=== PATIENT | male | born 1950 | race Caucasian/White ===

== ENCOUNTER 2016-08-26 10:00 | Inpatient (IN) | payer BC, MEDICARE ==
[~2016-08-26] VITALS: Ht 180.3 cm; Wt 229.8 kg
--- NOTE | ~2016-08-26 | ECHO ---
Transthoracic Echocardiography Report (TTE) Demographics Patient Name NAS VELASQUEZ Date of Study 08/28/2016 Patient Number [id number] Visit Number [id number] Date of 1950 Room Number [id number] Gender Male Number Age 65 year(s) Referring Principal Statistical Programmer Hay DOZIER, [facility] Physician Nandini Physician Interpreting Brennon Silveira Garment Cutter Physician MD Supervising Ordering Ayush Silveira MD, MD/MLP Physician Nurse Stress Weigher Operator Conclusions Summary Technically difficult exam due to patients body habitus. 3 ml of Definity administered. The estimated left ventricular ejection fraction is 50%. Diastolic function indeterminate due to patient's arrhythmia. Mild to moderately dilated right ventricle. Mildly reduced right ventricular function. Procedure Type of Study TTE procedure:M-Mode, Doppler , Color Doppler, Echo Limited w/ Contrast. Procedure Date Date: 08/28/2016 Start: 10:51 AM Study Location: Inpatient Portable Technical Quality: Poor visualization Additional Indications:elevated enzymes Appropriate Use Criteria: 9 Patient Status: Routine HR: 90 bpm BP: 122/78 mmHg M-Mode/2D Measurements Cardiac Output: 2.16 l/min AO Root Dimension: 3.3 cm LA Dimension: 3.8 cm LVOT: 2.4 cm LVOT VTI: 5.31 cm LV Stroke volume: 24.01 ml Doppler Measurements AV Peak Velocity: 0.31 m/s MV Peak E-Wave: 0.55 m/s AV Peak Gradient: 0.39 mmHg MV Peak A-Wave: 0.48 m/s AV Mean Gradient: 0 mmHg MV E/A Ratio: 1.16 LVOT Peak Velocity: 0.38 m/s PV Peak Velocity: 0.72 m/s PV Peak Gradient: 2.09 mmHg E' Lateral Velocity: 0.19 m/s A' Lateral Velocity: 0.06 m/s Findings Left Ventricle Diastolic function indeterminate due to patient's arrhythmia. Right Ventricle Mild to moderately dilated right ventricle. Mildly reduced right ventricular function. Left Atrium Left atrium not well visualized. Right Atrium Right atrium not well visualized. Mitral Valve Mitral valve not well visualized. Aortic Valve Aortic valve not well visualized. Tricuspid Valve Trivial tricuspid regurgitation by color Doppler. Pulmonic Valve The pulmonic valve is not well visualized. Pericardial Effusion Epicardial fat pad noted in subcostal view. Pleural Effusion No evidence of pleural effusion. Signature dtt: Serene Willett dtd: 08/28/16 1051 Physician Self Edit
--- NOTE | ~2016-08-26 | PUL ---
PATIENT'S NAME: NAS VELASQUEZ [facility] AGE: 65 Y [address] ROOM: [address] [address] LOCATION: GPCU ADMIT DATE: 08/26/2016 Pulmonary DISCHARGE DATE: 09/01/2016 FAMILY PHYSICIAN: Noa Fletcher PA-C ATTENDING PHYSICIAN: Sinan Munoz NAME OF PROCEDURE: Overnight Trend Oximetry DATE OF PROCEDURE: August 30 to August 31, 2016 REASON FOR EXAM: Nocturnal hypoxemia RESULTS: Patient overnight trend oximetry, saturations ranging from 70 to 98%. Saturations were below 88% greater than 5 minutes. Heart rate ranged from 61 to 121 beats per minute. MD YAJAIRA HAQ/ /[id number] dtt: 09/23/16 0827 , Ian Gonzalez dtd: 09/16/16 1318
--- NOTE | ~2016-08-26 | OR ---
PATIENT'S NAME: NAS VELASQUEZ [facility] AGE: 65 Y [address] ROOM: [address] [address] LOCATION: GICU ADMIT DATE: 08/26/2016 OR/Procedure Report DISCHARGE DATE: FAMILY PHYSICIAN: PHYSICIAN, UNKNOWN ATTENDING PHYSICIAN: SINAN MUNOZ SURGEON: Sinan Munoz MD SUPERVISOR AIRPLANE FLIGHT ATTENDANT: DATE OF PROCEDURE: 08/26/2016 PROCEDURE PERFORMED: Central venous catheterization. INDICATION FOR PROCEDURE: Lack of IV access and lack of ability to draw the labs. Informed consent from the patient and his was taken. Risks versus benefits, as well as risk of pneumothorax as well as bleeding and infection was explained in depth to the patient. The patient agreed to proceed. DESCRIPTION OF PROCEDURE: A time-out was taken. Both internal jugular veins were examined with ultrasonography, and no thrombus was observed in both of these. Lungs sliding bilaterally was noted. Right IJ was selected for the catheterization. Using sterile measures, the patient was prepped. Using lidocaine 1%, local anesthesia was achieved. Using Real-Time ultrasonography, a trocar needle was entered into the internal jugular with the aspiration of the dark oozing blood. A guidewire was advanced. Needle was removed. Presence of the guidewire was confirmed in the right internal jugular vein with the help of ultrasonography. Dilatation was achieved, and line was threaded over the guidewire, and guidewire was retrieved. Line was secured with sutures and dressed. No immediate complications were noted. Postprocedural chest x-ray have been ordered. MD REMA RICH/modl /[id number] d: 08/26/16 2254 t: 08/27/16 1234, OPERATIVE SUMMARY
--- NOTE | ~2016-08-26 | CON ---
PATIENT'S NAME: NAS VELASQUE[facility] AGE: 65 Y [address] ROOM: [id number] [place], [place] [address] LOCATION: GICU ADMIT DATE: 08/26/2016 Consultation DISCHARGE DATE: FAMILY PHYSICIAN: PHYSICIAN, UNKNOWN ATTENDING PHYSICIAN: CHINO BOUCHER HISTORY: This is a pleasant 65-year-old gentleman admitted to the ICU today with sepsis of uncertain origin. He tells me he had temps to 104 degrees at home. He was transferred here. He has multiple and severe comorbidities. He was morbidly obese at over 440 pounds. He has congestive failure, AFib, etc. He has a massive edema that involves his penis and scrotum as well as his pelvis and lower extremities. He has a huge scrotum and a urethral meatus that is buried at least 10 cm deep. This is not a situation where we can manipulate some of the edematous fluid out of the way and find the meatus. I can't reach the meatus with my finger. The nurses were obviously unable place a catheter. I was asked to see him. He is incontinent. He is dribbling. There was no way he could void. I dumped Betadine down his phimotic skin and towards the glans. That is all we can do for a prep. I then tried blindly with Coude tipped catheters and a stylet catheter. The patient tolerated it well, but there was no way that we are going to find his meatus. He had an ultrasound of his scrotum done. As anticipated, testicles appear normal. He just has tremendous edema in the scrotal wall. In order to help with fluid management and to get a urine for culture considering his possible urosepsis, I attempted cystoscopy. I can visualize the meatus at the extent of the rigid scope. I could pass catheter guides as well as a filiforms through. However, it is too deep. We cannot get any purchase on the penile shaft or glans. Everything balls-up in that deep pocket whenever we tried to slide anything over the catheter guide or the filiform with a screw tip catheter. With his residual only at 182 and with him doing better clinically, I am going to stop. If it becomes necessary, we will need to take him to surgery. He and his understand. IMPRESSION: 1. Urinary incontinence - multifactorial. 2. Urinary retention. 3. Unable place Slade catheter. 4. Sepsis. 5. Morbid obesity with severe penoscrotal and pelvic edema. PATIENT'S NAME: [facility]EL[facility] AGE: 65 Y [address] ROOM: [place] [address] LOCATION: GICU ADMIT DATE: 08/26/2016 Consultation DISCHARGE DATE: FAMILY PHYSICIAN: PHYSICIAN, UNKNOWN ATTENDING PHYSICIAN: CHINO BOUCHER PLAN: As above. MD KATE AUSTIN/domo /[id number] d: 08/26/16 2251 t: 09/02/16 1111, CONSULTATION REPORT
--- NOTE | ~2016-08-26 | DS ---
PATIENT'S NAME: [facility] AGE: 65 Y [address] ROOM: [place] [address] LOCATION: GPCU ADMIT DATE: 08/26/2016 Discharge Summary DISCHARGE DATE: 09/01/2016 FAMILY PHYSICIAN: Noa Fletcher PA-C ATTENDING PHYSICIAN: Sinan Munoz FINAL DIAGNOSES: 1. Septic shock. 2. Acute hypoxic hypercapnic respiratory failure and chronic hypercapnic respiratory failure. 3. Pyulo-vs-acntrbm diastolic congestive heart failure. 4. Paroxysmal atrial fibrillation. 5. Long-term anticoagulation with Eliquis. 6. Nocturnal hypoxia. 7. Thrombocytopenia. 8. Essential hypertension. In short, the patient was admitted with septic shock into the intensive care unit and found to be in acute respiratory failure. LABORATORY DATA: On admission, his initial ABG 7.32, pCO2 65, PO2 126, was on 15 L FiO2. Repeat gases shortly after admission were pH 7.31, pCO2 69, PO2 71, that was on 92% sat. Sodium on admission was 142, discharge 139. Potassium on admission 4.2, at discharge 4. BUN on admission was 19, discharge 16. Creatinine on admission was 1.3, discharge 1.2. His liver enzymes on admission were normal. His proBNP on admission was 1593, discharge 434. Digoxin level on admission was 0.65. Hemoglobin A1c 5.8. White blood cell count on admission was 9.6 with a left shift, at discharge 4.7. Hemoglobin on admission 11.8, discharge 11.6. Platelet count on admission was 110, at discharge 122. Procalcitonin on admission was 12.76, got as high as 23.32, at discharge 11.05. Microbiology: All cultures in the hospital were negative. Chest x-ray on admission showed cardiomegaly, but they did not see any acute process. Ultrasound of the testicles done for severe scrotal edema, did show normal testicles, marked scrotal wall edema. Echocardiogram done showed an ejection fraction was 50%. He had diastolic dysfunction, mild to moderately dilated right ventricle. HOSPITAL COURSE: The patient was admitted into the intensive care unit with a diagnosis of septic shock. He had been placed on a pressor in the PATIENT'S NAME: [facility] AGE: 65 Y [address] ROOM: [address] [place], [place] [address] LOCATION: GPCU ADMIT DATE: 08/26/2016 Discharge Summary DISCHARGE DATE: 09/01/2016 FAMILY PHYSICIAN: Noa Fletcher PA-C ATTENDING PHYSICIAN: Sinan Munoz transferring facility and given doses of IV fluid. He was admitted here, placed on the sepsis protocol and given IV Levaquin and vancomycin. He did receive 2 L here. We were able to wean the Levophed. An ultrasound of his scrotum was also ordered because it was quite enlarged. We continued to monitor him closely. We did find him to be in acute respiratory failure. We placed him on BiPAP. Did give him digoxin IV to help control his heart rate and continued the apixaban that he takes at home. He did require the BiPAP for a couple of days, we were able to get him off that. His heart rates were high and he was given IV digoxin to help control them. It was also felt that he had an acute component of CHF and so he was given Bumex. We were able to get him off the BiPAP and we did use it only at night for another night. Did start him on oral Cardizem to help control his heart rate. Did continue to diurese him. On the , we did diurese him with albumin and Bumex and we were quite successful. We were able to significantly reduce his oxygen requirements. He continued to receive diuresis over the weekend. He did have an overnight trend oximetry done that did show that he did have a significant percentage of the evening with his sats less than 90%, approximately 50% in the evening. During this time frame, we did work to wean his antibiotics; these were cut down to Levaquin and ceftriaxone initially. Blood cultures were obtained at the transferring facility and only 1/2 returned positive for Staph aureus. His antibiotics were not changed as his procalcitonin was trending downward and clinically he was markedly improved. It was felt that the source of his sepsis was from his lungs. It was felt that the patient was stable for discharge and he was discharged to home. DISCHARGE INSTRUCTIONS: Follow up with Noa Fletcher in 3-[address] Kebede, when he comes to [place]. His diet is low-sodium diet. Arrangements were made for him to receive oxygen at night. I did speak with Noa Fletcher regarding this discharge as well as the patient and we left the decision on sleep study to her. MEDICATIONS: 1. Eliquis 5 mg twice daily. 2. Ceftin 250 twice a day, which will stop on the . 3. Lanoxin 0.125 mg daily. 4. Cardizem CD 180 mg daily. 5. Flonase 1 spray each nostril daily. 6. Benadryl 25 mg every 12 hours as needed. 7. Percocet 5/325 one every 4 hours as needed. 8. Krill oil 1000 mg twice daily. PATIENT'S NAME: NAS VELASQUEZ [facility] AGE: 65 Y [address] ROOM: [address] [address] LOCATION: GPCU ADMIT DATE: 08/26/2016 Discharge Summary DISCHARGE DATE: 09/01/2016 FAMILY PHYSICIAN: Noa Fletcher PA-C ATTENDING PHYSICIAN: Sinan Munoz 9. Voltaren 75 mg twice daily. 10. Potassium 10 mEq every 48 hours. 11. Lasix 60 mg daily. 12. Albuterol inhaled 2 puffs 4 times daily. 13. Align or the generic equivalent, to take as directed from the box while on antibiotics. Also encouraged him to eat Activia yogurt daily. I did speak with Noa Fletcher. The patient is discharged to home. OVERALL PROGNOSIS: Good. AZUL BAILEY MD LAW/modl /[id number] d: 09/02/16 0159 t: 09/19/161831, DISCHARGE SUMMARY
--- NOTE | ~2016-08-26 | HP ---
PATIENT'S NAME: [facility] AGE: 65 Y [address] ROOM: [place] [address] LOCATION: GICU ADMIT DATE: 08/26/2016 History & Physical DISCHARGE DATE: FAMILY PHYSICIAN: PHYSICIAN, UNKNOWN ATTENDING PHYSICIAN: CHINO BOUCHER DATE OF SERVICE: CHIEF COMPLAINT: Fever and chills. HISTORY OF PRESENT ILLNESS: A 65-year-old gentleman with a past medical history of atrial fibrillation, long-term anticoagulation, and morbid obesity, who was in his usual state of health when he started having fevers a couple of days ago. He took some medication at home and ignored it. Last night, he was shaking and having high fevers recorded at home at 105. That prompted a visit to the emergency department at the [facility] in [place]. There, initial evaluation was done, and the patient was found to be in septic shock with a blood pressure in the 80s. He was transferred here for further medical care. On my encounter, he is saying that he is doing okay. He is a little bit short of breath. He does not have any cough or sputum production. He endorsed having fever and chills last night, but not having anymore. He denied having any headache, any trouble swallowing, any chest pain, any chest pressure, any palpitations, any abdominal pain, constipation, diarrhea, or burning on urination. He did endorse having scrotal edema and leg swelling for many years now which have been managed by his primary care physician with Lasix. On further inquiry, he did endorse sleeping in the recliner secondary to his osteoarthritis, but did not endorse using any nocturnal oxygen or any CPAP or having paroxysmal nocturnal dyspnea. REVIEW OF SYSTEMS: All other systems were reviewed and were negative except what is mentioned in the HPI. ALLERGIES: NO KNOWN DRUG ALLERGIES. FAMILY HISTORY: Family history is significant for GI bleed in mother which proved to be fatal. PAST MEDICAL HISTORY: 1. Morbid obesity. 2. Atrial fibrillation, on long-term anticoagulation. 3. Osteoarthritis. PATIENT'S NAME: [facility] AGE: 65 Y [address] ROOM: [place] [address] LOCATION: GICU ADMIT DATE: 08/26/2016 History & Physical DISCHARGE DATE: FAMILY PHYSICIAN: PHYSICIAN, UNKNOWN ATTENDING PHYSICIAN: CHINO BOUCHER 4. Hyperkalemia. MEDICATIONS: Per the patient, he is on: 1. Bystolic 2.5 mg p.o. b.i.d. 2. Apixaban 5 mg p.o. b.i.d. 3. Digoxin 125 mcg p.o. daily. 4. Oxycodone and acetaminophen 5/325 one tablet p.o. q.4 hours p.r.n. for pain. 5. Diphenhydramine 25 mg q.12 hours p.r.n. for allergies. 6. Diclofenac sodium 75 mg b.i.d. p.r.n. for arthritis. 7. Potassium chloride 10 mEq p.o. q.48 hours. 8. Lasix 60 mg p.o. q.48 hours. 9. Fluticasone 16 g one spray to nose daily. 10. Albuterol sulfate 8.5 g 2 puffs inhalation q.i.d. p.r.n. for wheezing. SOCIAL HISTORY: The patient was never a smoker. No alcohol or drug abuse. PHYSICAL EXAMINATION: VITAL SIGNS: On arrival to our hospital, his blood pressure was 100/60, respiratory rate of 16, saturating 99% on 15 L of non-rebreather, respiratory rate of 25, and temperature was 100.5. GENERAL: In mild acute distress due to shortness of breath. Alert and oriented x3. HEENT: Head: Atraumatic, normocephalic. Eyes: Nonicteric. No pallor. Oropharynx: Moist mucous membranes. CARDIOVASCULAR: S1 and S2. No murmur, gallops, or rubs were appreciated. LUNGS: Clear to auscultation bilaterally with occasional expiratory rhonchi. ABDOMEN: Obese, soft, nontender, and nondistended. Bowel sounds were present. EXTREMITIES: Stasis dermatitis and +3 extremity edema. GENITOURINARY: Scrotal enlargement without any tenderness or evidence of cellulitis on it. MUSCULOSKELETAL: No muscle tenderness or joint swelling was noted. NEUROLOGIC: Cranial nerves 2 through 12 intact. No motor or sensory deficit noted. PSYCHIATRIC: Normal affect, mood, and speech. LABORATORY AND DIAGNOSTIC DATA: EKG done at the outside facility showed sinus tachycardia. Chest x-ray was done, which was limited in terms of position as well as habitus. Did not reveal any acute vascular congestion, per my read. There might be infiltrate in the left lower lung. Lab work from outside facility showed sodium of 142, potassium 5.1, chloride 97, bicarbonate of 31, BUN 18, creatinine 1.0, and PATIENT'S NAME: NAS VELASQUEZ [facility] AGE: 65 Y [address] ROOM: [place] [address] LOCATION: [facility] ADMIT DATE: 08/26/2016 History & Physical DISCHARGE DATE: FAMILY PHYSICIAN: PHYSICIAN, UNKNOWN ATTENDING PHYSICIAN: CHINO BOUCHER glucose 150. Lactic acid was 4. D-dimer was 3.8. White count of 10, hemoglobin of 15, and platelets 139. ABG done at the outside facility showed pH of 7.42, pCO2 of 50, and PO2 of 97 on 15 L of non-rebreather oxygen. On arrival to our facility, pH changed dramatically to 7.35 with rising CO2 up to 65 and 126. Procalcitonin was done, which was 12. Lactic acid was repeated, which was 1.9 after 2 L of volume resuscitation. ASSESSMENT: 1. Septic shock, likely secondary to left lower lobe pneumonia. 2. Acute hypoxic/hypercarbic respiratory failure. 3. Left lower lobe pneumonia. 4. Atrial fibrillation with rapid ventricular rate. 5. Hyperkalemia. 6. Arthritis. 7. Scrotal edema. 8. Venous dermatitis. PLAN: 1. The patient was in septic shock on arrival to our facility as he was on Levophed drip. 2 sets of blood cultures at outside facility have been obtained, and lactic acid was done, which was 4. He was volume resuscitated with 2 L of IV fluids with normalization of the lactic acid to 1.9. Sputum cultures and urine cultures will be obtained. He has already been administered broad-spectrum antibiotics within 2 hours of identification of sepsis, which was 8:20 a.m. this morning. On review of his history and the given presentation, it does not appear that he has risk factors for multi-drug resistant infections including Pseudomonas and Staph. We will deescalate the antibiotics to Rocephin and Levaquin at this point. 2. Acute hypoxic/hypercarbic respiratory failure, which I believe is secondary to septic shock at this point. Pneumonia could be contributing at this point. I did entertain the possibility of pulmonary embolism, but he was therapeutically anticoagulated with apixaban, and he has been taking his medication regularly. Due to his morbid obesity and weight being 540 pounds, he cannot fit in our CAT scan machine in this hospital. We did request DVT of the lower extremities, but due to extreme obesity, vascular lab said we will not be able to do them properly. 3. Atrial fibrillation with RVR. The patient is in sinus tach at this point, per my read on the EKG. We will observe that. Long-term anticoagulation with apixaban will be restarted as soon as the patient is more stabilized. 4. Hyperkalemia. Not sure what the etiology is at this point. We will keep checking the CBC and BMP. After the volume resuscitation, I anticipate that this will go down. 5. Arthritis. Continue the home medication. Tylenol p.r.n. Today, we will PATIENT'S NAME: NAS VELASQUEZ [facility] AGE: 65 Y [address] ROOM: [place] [address] LOCATION: [facility] ADMIT DATE: 08/26/2016 History & Physical DISCHARGE DATE: FAMILY PHYSICIAN: PHYSICIAN, UNKNOWN ATTENDING PHYSICIAN: CHINO BOUCHER treat him with Lovenox for DVT prophylaxis at this point. He does not need to be bridged as the indication for long-term anticoagulation is atrial fibrillation and not the DVT or PE in the past. I spent some 70 minutes in providing direct critical care to this patient. Further management will depend on his course in this hospitalization. MD REMA RICH/domo /[id number] D: T: HISTORY & PHYSICAL
[2016-08-26 11:16] LABS: BICARBONATE 33.5 mmol/L (18.0-23.0); PCO2 65 mmHg (35-45); PO2 126 mmHg (80-90)
[2016-08-26 12:07] LABS: INR - (THERAPEUTIC) 1.16 (0.92-1.07); PROTIME 12.2 SECONDS (9.8-11.4)
[2016-08-26] MEDS ORDERED: BYSTOLIC2.5 MG PO (12:30)
[2016-08-26] MEDS ORDERED: LANOXIN (DIGI125 MCG PO (12:30)
[2016-08-26] MEDS ORDERED: ELIQUIS5 MG PO (12:30)
[2016-08-26] MEDS ORDERED: KRILL OIL 1,001 EAC1 PO (12:31)
[2016-08-26] MEDS ORDERED: PERCOCET 5-3251 EACH PO (12:31)
[2016-08-26] MEDS ORDERED: BENADRYL25 MG PO (12:32)
[2016-08-26 13:01] LABS: ALBUMIN 2.6 gm/dL (3.5-5.0); ANION GAP 9.2 (10.0-19.0); CALCIUM 8.1 mg/dL (8.5-10.5); CREATININE 1.3 mg/dL (0.6-1.3); POTASSIUM 4.2 mMol/L (3.7-5.1)
[2016-08-26] MEDS ORDERED: K-TAB 10MEQ10 MEQ PO (13:07)
[2016-08-26] MEDS ORDERED: LASIX20 MG PO (13:07)
[2016-08-26] MEDS ORDERED: VOLTAREN75 MG PO (13:07)
[2016-08-26] MEDS ORDERED: PROAIR HFA8.5 GM INH (13:08)
[2016-08-26] MEDS ORDERED: FLONASE 50 MCG/16 GM NOSE (13:08)
[2016-08-26 14:30] LABS: BLOOD URINE 250 /UL (NEGATIVE); COLOR URINE YELLOW (YELLOW); GLUCOSE URINE NEGATIVE (NEGATIVE); KETONE URINE NEGATIVE (NEGATIVE); LEUKOCYTES URINE 100 /UL (NEGATIVE); NITRITE URINE NEGATIVE (NEGATIVE); PROTEIN URINE 100 mg/dL (NEGATIVE); UROBILINOGEN URINE 1 mg/dL (NORMAL)
[2016-08-26 14:31] LABS: TURBIDITY URINE 1+ (CLEAR)
[2016-08-26 14:45] LABS: BACTERIA URINE MODERATE (NEGATIVE); CRYSTALS URINE URIC ACID (NEGATIVE); MUCUS URINE 2+ (NEGATIVE)
[2016-08-26 14:46] LABS: AMORPHOUS URINE 3+ (NEGATIVE)
[2016-08-26 15:14] LABS: BICARBONATE 34.7 mmol/L (18.0-23.0); PCO2 69 mmHg (35-45)
[2016-08-26 15:16] LABS: PO2 71 mmHg (80-90)
--- NOTE | 2016-08-26 19:08 | NUR ---
SIGNIFICANT EVENT: PATIENT ALERT, ORIENTED X3. OPENS EYES SPONTANEOUSLY AND TO COMMANDS. PUPILS EQUAL AND REACTIVE. PATIENT NODS YES/NO APPROPRIATELY. PATIENT'S SPEECH IS CLEAR/ APPROPRIATE. PATIENT DENIES ANY NUMBNESS TINGLING OR PAIN. PATIENT MOVES ALL 4 EXTREMITIES SPONTANEOUSLY AND TO COMMANDS, EQUAL STRENGTH THROUGHOUT. SIGNIFICANT WEAKNESS THROUGHOUT. BEDREST. RESPOSITIONED EVERY 2 HOURS. PATIENT HAS BEEN IN AFIB RHYTHM, HR 90-110S. PULSES PALPABLE THROUGHOUT, THREADY IN LOWER EXTREMITIES. MAX ORAL TEMP OF 100.4, NOW AFEBRILE. EDEMA PRESENT THROUGHOUT, 4+ IN BILAT LOWER EXTREMITIES AND SCROTUM AREA. BP STABLE, SBP 90-110S, MAP>65 AT ALL TIMES. ABX ADMINISTERED PER MD ORDER. PATIENT ARRIVED TO ICU ON 15L OF OXYGEN PER NON REBREATHER MASK NOW WEANED TO 4L NASAL CANNULA, SATS MID TO UPPER 90S. RR WITHIN NORMAL, DR. BOUCHER AWARE OF ABG RESULTS. SPONT, NON PRODUCTIVE COUGH. BOWEL SOUNDS ACTIVE, NO BM. REGULAR DIET. ACCU CHECKS Q 6 HOURS. MULTIPLE ATTEMPTS TO PLACE [place]ICK, BY DR DODD AND PRIMARY RN, UNSUCCESSFUL, DR. BOUCHER AWARE. 200ML URINE OUTPUT, CONCERNTRATED URINE, UA AND URINE CULTURES SENT. REDNESS, WARMTH TO BILAT LOWER EXTREMITIES. REDNESS TO BOTTOM, SCROTUM/ GROINS RED/ EDEMATOUS. R) IJ PLACED BY DR BOUCHER AT BEDSIDE, DR BOUCHER STATED IT IS OK TO USE IF ABSOLUTELY NEEDED, IF LEVOPHED HAS NOT BEEN INITIATED BY 08/27, D/C R) IJ RELATED TO PLACEMENT. 3 PIV, SALINE LOCKED. FLUSH WELL. NO COMPLICATIONS. FOLLOW UP: CONTINUE TO MONITOR
--- NOTE | 2016-08-27 03:29 | NUR ---
Significant Event: Patient alert and oriented. Rested and repositioned in bed this shift. MAPs have remained greater than 65 this shift. Max temp of 99.8 oral. Patient tolerated bipap for short time while sleeping. at bedside. Follow up:continue to monitor,
[2016-08-27 04:39] LABS: ALBUMIN 2.4 gm/dL (3.5-5.0); ALK PHOS 53 IU/L (33-138); ALT 17 IU/L (12-78); ANION GAP 10.2 (10.0-19.0); AST 20 IU/L (10-40); BLOOD UREA NITROGEN 20 mg/dL (6-24); CHLORIDE 103 mMol/L (96-110); CO2 32 mMol/L (22-32); CREATININE 1.2 mg/dL (0.6-1.3); ESTIMATED GFR (MDRD EQUATION) > 60; POTASSIUM 4.2 mMol/L (3.7-5.1); SODIUM 141 mMol/L (135-145); TOTAL PROTEIN 7.1 g/dL (6.0-8.4)
[2016-08-27 04:40] LABS: TOTAL BILIRUBIN 0.7 mg/dL (0.0-1.5)
[2016-08-27 04:56] LABS: BICARBONATE 37.4 mmol/L (18.0-23.0); PO2 75 mmHg (80-90)
[2016-08-27 05:02] LABS: BASOPHIL % 0.3 %; EOSINOPHIL % 0.2 %; HEMATOCRIT 41.1 % (37.0-53.0); HEMOGLOBIN 11.8 g/dL (11.0-16.0); IMMATURE GRANULOCYTE % 0.4 %; LYMPHOCYTE # 0.9 K/uL (0.8-4.0); LYMPHOCYTE % 9.2 %; MCH 26.1 pg (27.0-34.0); MCHC 28.7 gm/dL (32.0-36.5); MCV 90.9 fl (83.0-98.0); MONOCYTE # 0.6 K/uL (0.0-1.0); MPV 9.7 fl (9.4-12.4); NEUTROPHIL % 83.9 %; NRBC % 0 /100WBC (0-0.00); PLATELET COUNT 110 K/uL (150-450); RBC 4.52 M/uL (3.50-5.50); RDW-CV 16.9 % (11.9-14.6); WBC 9.6 K/uL (4.0-11.0)
[2016-08-27 05:12] LABS: PCO2 76 mmHg (35-45)
--- NOTE | 2016-08-27 05:29 | NUR ---
BiPAP ordered for patient to wear at night at 12/7, pressures increased to 15/7 with 10lpm O2 bled through the Focus BiPAP to keep SpO2>90%. ABG results this AM with a PaCO2 of 76. Plan to switch BiPAP to a V60 and change pressures to 16/5.
[2016-08-27 09:28] LABS: BICARBONATE 37.2 mmol/L (18.0-23.0); PCO2 69 mmHg (35-45); PO2 81 mmHg (80-90)
--- NOTE | 2016-08-27 13:30 | NUR ---
Introduced self and care management services to patient and at bedside in ICU. Lives in [place]. Too soon to know needs but does not anticipate dc needs right now, plans on going home with . Will follow.
--- NOTE | 2016-08-27 16:41 | NUR ---
Significant Event: Patient is A&O X3, follows all commands. Pupils are equal and reactive. SBP have been 90's-120's, MAP's have been 60's-90's. HR have been one teens-120's. Gave 250mcg of Digoxin IVP times one, HR still remained one teens-120's, started Cardizem gtt at 10mg/hr per protocol. Since Cardizem was started HR have been low 100's. Patient is on 30% BiPAP, and for 4 hours patient was on 6L NC with o2 sats low to mid 90's. Lung sounds are clear and diminished. Patient voids per bedpan. Urine out put was 2025ml. Gave Bumex 2mg IVP X1 Follow up:
[2016-08-27 17:11] LABS: ALBUMIN 2.5 gm/dL (3.5-5.0); ANION GAP 8.6 (10.0-19.0); CALCIUM 8.5 mg/dL (8.5-10.5); CREATININE 1.3 mg/dL (0.6-1.3); MAGNESIUM 2.1 mg/dL (1.8-2.6); PHOSPHORUS 2.8 mg/dL (2.5-4.9); POTASSIUM 4.6 mMol/L (3.7-5.1)
[2016-08-28 05:25] LABS: BASOPHIL % 0.3 %; EOSINOPHIL # 0.1 K/uL (0.0-0.5); EOSINOPHIL % 0.9 %; HEMATOCRIT 41.2 % (37.0-53.0); HEMOGLOBIN 11.7 g/dL (11.0-16.0); IMMATURE GRANULOCYTE % 0.5 %; LYMPHOCYTE # 0.7 K/uL (0.8-4.0); LYMPHOCYTE % 11.4 %; MCH 25.4 pg (27.0-34.0); MCHC 28.4 gm/dL (32.0-36.5); MCV 89.4 fl (83.0-98.0); MONOCYTE # 0.5 K/uL (0.0-1.0); MPV 8.8 fl (9.4-12.4); NEUTROPHIL % 78.9 %; NRBC % 0 /100WBC (0-0.00); PLATELET COUNT 107 K/uL (150-450); RBC 4.61 M/uL (3.50-5.50); RDW-CV 16.8 % (11.9-14.6); WBC 6.4 K/uL (4.0-11.0)
[2016-08-28 05:39] LABS: ALBUMIN 2.5 gm/dL (3.5-5.0); ANION GAP 10.3 (10.0-19.0); BLOOD UREA NITROGEN 17 mg/dL (6-24); CALCIUM 8.4 mg/dL (8.5-10.5); CHLORIDE 102 mMol/L (96-110); CO2 33 mMol/L (22-32); CREATININE 1.2 mg/dL (0.6-1.3); ESTIMATED GFR (MDRD EQUATION) > 60; MAGNESIUM 2.2 mg/dL (1.8-2.6); PHOSPHORUS 2.7 mg/dL (2.5-4.9); POTASSIUM 4.3 mMol/L (3.7-5.1); SODIUM 141 mMol/L (135-145)
--- NOTE | 2016-08-28 06:44 | NUR ---
Significant Event: Pt is alert and orineted x3. Pupils are equal and reactive. Moves all extremities spontaneously and to command. On a Cardezem gtt per protocol. On 6L via NC or BiPap at 30-40%. Stand and pivot from bed to chair. Scrotom is very edemotus. PIV in place. Urinates in the basin. No Bm this shift. Follow up: [place]em[place] of cardezem gtt.
--- NOTE | 2016-08-28 16:10 | NUR ---
Significant Event: Patient is A&O X3, follows all commands, pupils are equal and reactive. SBP have been one teens's-120's, MAP's have been 80's-low 100's. HR have been 70's-120's. Cardizem gtt was d/c'd and Cardizem 30mg PO TID was started. Patient is on 4L NC during the day. 40% BIPAP at night and when sleeping. O2 sats have been mid 90's. Lung sounds are clear and diminished, diminished in the bases. Gave 2mg Bumex IVP X1. Patient had 2875ml out of urine. Patient is a 2 assist. Follow up:
[2016-08-28 18:24] LABS: BLOOD UREA NITROGEN 17 mg/dL (6-24); CALCIUM 8.6 mg/dL (8.5-10.5); CHLORIDE 101 mMol/L (96-110); CO2 33 mMol/L (22-32); CREATININE 1.2 mg/dL (0.6-1.3); ESTIMATED GFR (MDRD EQUATION) > 60; MAGNESIUM 2.2 mg/dL (1.8-2.6); SODIUM 141 mMol/L (135-145)
--- NOTE | 2016-08-29 04:14 | NUR ---
Significant Event: Pt oriented x3. Bipap worn tonight until approx 4am. Pt teaching done in regards to BIpap. Pt has been in/out of Afib/Aflutter and SR, with controlled rates from 50s-80s. Hemodynamically stable. Pt constipated, Miralax started. UOp adequate. Percocet given x1 with noted relief. Pt stood at chairside various times. Follow up: Transfer.
[2016-08-29 16:39] LABS: ALBUMIN 2.9 gm/dL (3.5-5.0); BLOOD UREA NITROGEN 15 mg/dL (6-24); CALCIUM 8.6 mg/dL (8.5-10.5); CHLORIDE 100 mMol/L (96-110); CREATININE 1.1 mg/dL (0.6-1.3); ESTIMATED GFR (MDRD EQUATION) > 60; MAGNESIUM 2.2 mg/dL (1.8-2.6); PHOSPHORUS 3.4 mg/dL (2.5-4.9); SODIUM 141 mMol/L (135-145)
[2016-08-29 16:44] LABS: CO2 36 mMol/L (22-32)
[2016-08-30 06:18] LABS: BASOPHIL % 0.5 %; EOSINOPHIL # 0.1 K/uL (0.0-0.5); EOSINOPHIL % 2.1 %; HEMATOCRIT 41.9 % (37.0-53.0); HEMOGLOBIN 12.2 g/dL (11.0-16.0); IMMATURE GRANULOCYTE % 0.7 %; LYMPHOCYTE # 0.8 K/uL (0.8-4.0); LYMPHOCYTE % 18.1 %; MCH 25.7 pg (27.0-34.0); MCHC 29.1 gm/dL (32.0-36.5); MCV 88.2 fl (83.0-98.0); MONOCYTE # 0.4 K/uL (0.0-1.0); MPV 9.1 fl (9.4-12.4); NEUTROPHIL # (ANC) 3.1 K/uL (1.4-9.0); NEUTROPHIL % 70.6 %; NRBC % 0 /100WBC (0-0.00); PLATELET COUNT 119 K/uL (150-450); RBC 4.75 M/uL (3.50-5.50); RDW-CV 16.3 % (11.9-14.6); WBC 4.4 K/uL (4.0-11.0)
[2016-08-30 06:39] LABS: ALBUMIN 2.8 gm/dL (3.5-5.0); ANION GAP 8.8 (10.0-19.0); BLOOD UREA NITROGEN 14 mg/dL (6-24); CALCIUM 8.7 mg/dL (8.5-10.5); CHLORIDE 101 mMol/L (96-110); CREATININE 1.1 mg/dL (0.6-1.3); ESTIMATED GFR (MDRD EQUATION) > 60; MAGNESIUM 2.2 mg/dL (1.8-2.6); PHOSPHORUS 3.6 mg/dL (2.5-4.9); POTASSIUM 3.8 mMol/L (3.7-5.1); SODIUM 141 mMol/L (135-145)
[2016-08-30 06:42] LABS: CO2 35 mMol/L (22-32)
--- NOTE | 2016-08-30 07:04 | NUR ---
Significant Event: A/O, VSS on 2L O2, wore bipap through most of night, afebrile, Percocet x1 for R)shoulder/back pain, SBA to bathroom, adequate UOP Follow up: continue plan of care
--- NOTE | 2016-08-30 12:55 | NUR ---
A-SCREENED D/T LOS HT: 71 IN. CBW: 233.7 KG. IBW: 78 KG. BMI: 71.8 LABS REVIEWED: GLU 102, ALB 2.8 MEDS: IV BUMEX, NOVOLOG (MILD SS), MIRALAX, PROTONIX, ROCEPHIN, ELIQUIS, PERCOCET, LEVAQUIN. WT DOWN FROM ADMIT WT; PT ADMITTED W/4+ EDEMA AND HAS BEEN GETTING IV BUMEX DIET RX: REGULAR. PO INTAKE 75-100% EST NUTR NEEDS: 4332-8965 KCALS (22-25 KCALS/KG IBW) 115-176 GM PROTEIN (1.5-2.0 GM/KG IBW) 1 ML FLUID/KCAL D-NOT AT NUTRITION RISK; NO NUTRITION DX IDENTIFIED I-CONTINUE W/CURRENT DIET RX M/E-WILL ASSIST NEEDED
--- NOTE | 2016-08-30 18:37 | NUR ---
Significant Event: VSS. C/O RIGHT SHOULDER PAIN, PERCOCET 1 TAB GIVEN X1. UP WITH 1 ASSIST, GB AND WALKER. VERY HELPFUL WITH ASSISTING PATIENT WITH URINAL. SL TO LEFT HAND. O2 @ 1L NC. LUNGS CLEAR/DIM. BM X2. BUMEX 1 MG IV X1 AND DIAMOX 250 MG IV X1. >1000 ML UOP. Follow up:
[2016-08-31 03:51] LABS: BASOPHIL % 0.4 %; EOSINOPHIL # 0.1 K/uL (0.0-0.5); EOSINOPHIL % 1.3 %; HEMATOCRIT 42.8 % (37.0-53.0); HEMOGLOBIN 12.6 g/dL (11.0-16.0); IMMATURE GRANULOCYTE % 0.4 %; LYMPHOCYTE # 0.8 K/uL (0.8-4.0); LYMPHOCYTE % 17.4 %; MCH 25.8 pg (27.0-34.0); MCHC 29.4 gm/dL (32.0-36.5); MCV 87.7 fl (83.0-98.0); MONOCYTE # 0.4 K/uL (0.0-1.0); MONOCYTE % 7.6 %; NEUTROPHIL # (ANC) 3.4 K/uL (1.4-9.0); NEUTROPHIL % 72.9 %; NRBC % 0 /100WBC (0-0.00); PLATELET COUNT 122 K/uL (150-450); RBC 4.88 M/uL (3.50-5.50); RDW-CV 16.2 % (11.9-14.6); WBC 4.7 K/uL (4.0-11.0)
[2016-08-31 04:14] LABS: ANION GAP 12.7 (10.0-19.0); BLOOD UREA NITROGEN 15 mg/dL (6-24); CALCIUM 8.6 mg/dL (8.5-10.5); CHLORIDE 102 mMol/L (96-110); CO2 30 mMol/L (22-32); CREATININE 1.1 mg/dL (0.6-1.3); ESTIMATED GFR (MDRD EQUATION) > 60; MAGNESIUM 2.2 mg/dL (1.8-2.6); POTASSIUM 3.7 mMol/L (3.7-5.1); SODIUM 141 mMol/L (135-145)
--- NOTE | 2016-08-31 05:52 | NUR ---
Significant Event: A/O, VSS, trend ox study done, patient needed 1-2 L O2 for sats dropping into 70%s, Percocet x1 for shoulder pain, voiding well, no coverage needed for accuchecks Follow up: continue plan of care, [place]
--- NOTE | 2016-08-31 15:59 | NUR ---
Significant Event: Up in chair. Bumex and Diamox given. O2 at 0.5 L nc. A/Ox3. at bedside. Denies pain. Need assistance to void. LS clear, Abd soft had 1 BM. +3 edema in legs. IV SL in left wrist. 1 assist with walker. Afib/aflutter to SR. Accucheck WNL no insulin.
[2016-09-01 05:04] LABS: BLOOD UREA NITROGEN 16 mg/dL (6-24); CALCIUM 8.8 mg/dL (8.5-10.5); CHLORIDE 102 mMol/L (96-110); CO2 28 mMol/L (22-32); CREATININE 1.2 mg/dL (0.6-1.3); ESTIMATED GFR (MDRD EQUATION) > 60; MAGNESIUM 2.2 mg/dL (1.8-2.6); SODIUM 139 mMol/L (135-145)
--- NOTE | 2016-09-01 05:43 | NUR ---
Significant Event:A/O, VSS, 1L O2, wore bipap for approx. 2 hrs, Percocet x1, patient states he "feels like im passing a kidney stone", pain has let up throughout night, voiding well Follow up: continue to diurese
--- NOTE | 2016-09-01 12:49 | NUR ---
Talked with patient and spouse at bedside. They report they are hoping he gets to go home later today, working on getting O2 at home. Reports he has walker, wheelchair, chuck scooter to get around in, both deny concerns about him going home on discharge today. [employer]eles[employer] Representative will follow.
--- NOTE | 2016-09-01 15:58 | NUR ---
Significant Event: pt weaned off . Pt had albumin and bumex today. Good uop. Pt going home this afternoon. Percocet for arthritic pain. helps pt with cares. Follow up:
[2016-09-01] MEDS ORDERED: CEFTIN500 MG PO (16:11)
[2016-09-01] MEDS ORDERED: CARDIZEM CD180 MG PO (16:12)
[2016-09-01] MEDS ORDERED: ALIGN4 MG PO (16:20)
== END 2016-09-01 17:40 | disposition disaster alternative care site (69) | DRG 871 ==
LOC: GICU 10:48 → GPCU 08-29 16:58
PROVIDERS: Internal Medicine; ADMIT Internal Medicine
PROC: 05HM33Z Insertion of Infusion Device into Right Internal Jugular Vein, Percutaneous Approach (ICD-10-PCS; principal; 2016-08-26)
PROC: B543ZZA Ultrasonography of Right Jugular Veins, Guidance (ICD-10-PCS; principal; 2016-08-26)
PROC: B246ZZZ Ultrasonography of Right and Left Heart (ICD-10-PCS; 2016-08-28)
DX: A41.9 Sepsis, unspecified organism (principal); R65.21 Severe sepsis with septic shock; J96.21 Acute and chronic respiratory failure with hypoxia; I50.33 Acute on chronic diastolic (congestive) heart failure; J18.1 Lobar pneumonia, unspecified organism; I48.0 Paroxysmal atrial fibrillation; G47.34 Idiopathic sleep related nonobstructive alveolar hypoventilation; Z68.45 Body mass index [BMI] 70 or greater, adult; E66.01 Morbid (severe) obesity due to excess calories; E87.5 Hyperkalemia; I87.2 Venous insufficiency (chronic) (peripheral); M19.90 Unspecified osteoarthritis, unspecified site
CPT/HCPCS: C8924; C9113; J0696; J1120; J1160; J1650; J3370; J7040; J7050; J7060; P9047; Q9957